=== PATIENT | male | born 1960 | race American Indian/Alaskan Native ===

== ENCOUNTER 2018-11-07 17:59 | Inpatient (IN) | payer OTHER ==
[2018-11-07] MEDS ORDERED: ASPIRIN PO ONE (18:21)
--- NOTE | 2018-11-07 18:24 | Emergency Department Report ---
Stated Complaint: ABD PAIN Time Seen by Provider: 11/07/18 18:19 - HPI History of Present Illness: This is a 58 y.o. male that presents with to ER with n/v and abdominal pain x 3 days. - ROS Review of Systems: chest pain and SOB - Exam Vital Signs: Vital Signs 11/07/18 18:20 Temperature 98.1 F Pulse Rate 87 Respiratory 18 Rate Blood Pressure 150/100 O2 Sat by Pulse 100 Oximetry MSE screening note: Focused history and physical exam performed. Due to findings the following was ordered: labs, ekg, cxr ED Disposition for MSE Condition: Stable
[2018-11-07 19:20] LABS: Basophils # (Auto) 0.1 K/mm3 (0.0-0.1); Eosinophils % (Auto) 0.2 % (0.0-4.3); Monocytes # (Auto) 0.7 K/mm3 (0.0-0.8); Monocytes % (Auto) 8.4 % (0.0-7.3)
[2018-11-07 19:56] LABS: BUN/Creatinine Ratio 9; Blood Urea Nitrogen 11 mg/dL (9-20); Calcium 9.9 mg/dL (8.4-10.2); Hemolysis Index 18
[2018-11-07 20:02] LABS: Basophils % (Auto) 1.1 % (0.0-1.8); Hematocrit 47.4 % (35.5-45.6); Hemoglobin 16.2 gm/dl (11.8-15.2); Lymphocytes # (Auto) 1.6 K/mm3 (1.2-5.4); Lymphocytes % (Auto) 19.9 % (13.4-35.0); Mean Corpuscular HGB Conc 34 % (32-34); Mean Corpuscular Volume 94 fl (84-94); Platelet Count 304 K/mm3 (140-440); Red Blood Count 5.03 M/mm3 (3.65-5.03); Red Cell Distribution Width 13.4 % (13.2-15.2)
[2018-11-07] MEDS ORDERED: ZOFRAN IV ONE (21:07)
[2018-11-07] MEDS ORDERED: DILAUDID IV ONE (21:07)
[2018-11-07] MEDS ORDERED: NACL 0.9% 500 ML 500 ML IV ONE (22:07)
[2018-11-07] MEDS ORDERED: PEPCID IV ONE (22:07)
[2018-11-07] MEDS ORDERED: K-DUR PO ONE (22:25)
--- NOTE | 2018-11-07 22:25 | Emergency Department Report ---
ED General Adult HPI - General Chief complaint: Chest Pain Stated complaint: ABD PAIN Time Seen by Provider: 11/07/18 18:19 Source: patient, RN notes reviewed Mode of arrival: Ambulatory Limitations: No Limitations - History of Present Illness Initial comments: Primary care DrTiffany: [facility] This is a pleasant 58-year-old gentleman, not known to this provider previously, history of hypertension, and recreational cannabis consumption. Patient presents to the emergency room with a complaint of abdominal pain, chest pain, back pain, nausea, vomiting and shortness of breath. Abdominal pain started first, 3 days ago, supraumbilical, crampy, "all over", increased with palpation, decreases with hydromorphone, and Zofran, given in the emergency room. Patient has never had abdominal pain like this before. Chest pain started today, left-sided, moves on the left side of the chest, but does not radiate to the back, arms and neck. He endorses shortness of breath when he is having pain. He denies DVT or pulmonary embolus risk factors. No recent aspirin consumption. No recent cardiac risk stratification. Reports distant history of pericardial effusion, evaluated at [facility]. No recent cardiac risk stratification. Denies cocaine or methamphetamine use. Also describes nontraumatic right posterior thoracic back pain, which radiates down to the right paralumbar region. This started approximately 24 hours ago. Denies extremity weakness, lateral bowel retention or incontinence, saddle anesthesia. Initially, actively vomiting, and in moderate distress, given aforementioned medications, which dramatically improved his symptomatology. -: Gradual, days(s) Location: chest, back, abdomen Radiation: non-radiation Severity scale (0 -10): 0 Quality: aching Consistency: intermittent Improves with: medication Worsens with: other - Related Data Allergies Allergy/AdvReac Type Severity Reaction Status Date / Time No Known Allergies Allergy Verified 11/07/18 18:20 ED Review of Systems ROS: Stated complaint: ABD PAIN Other details as noted in HPI Constitutional: malaise. denies: fever Eyes: denies: vision change ENT: denies: epistaxis Respiratory: shortness of breath Cardiovascular: chest pain Gastrointestinal: abdominal pain, nausea, vomiting Genitourinary: denies: dysuria Musculoskeletal: back pain Skin: denies: lesions Neurological: denies: weakness, numbness, paresthesias, confusion Psychiatric: denies: anxiety ED Past Medical Hx - Past Medical History Previous Medical History?: Yes Hx Hypertension: Yes Additional medical history: myocardial effusion. effusion drainage - Surgical History Past Surgical History?: No - Social History Smoking Status: Former Smoker Substance Use Type: Alcohol ED Physical Exam - General Limitations: No Limitations General appearance: alert, in no apparent distress - Head Head exam: Present: atraumatic, normocephalic - Eye Eye exam: Present: normal appearance, EOMI. Absent: nystagmus - ENT ENT exam: Present: normal exam, normal orophraynx, mucous membranes moist, normal external ear exam - Neck Neck exam: Present: normal inspection, full ROM. Absent: tenderness, meningismus - Respiratory Respiratory exam: Present: normal lung sounds bilaterally. Absent: respiratory distress, wheezes, rales, rhonchi, stridor - Cardiovascular Cardiovascular Exam: Present: regular rate, normal rhythm, normal heart sounds. Absent: bradycardia, systolic murmur, diastolic murmur, rubs, gallop - GI/Abdominal GI/Abdominal exam: Present: soft. Absent: distended, tenderness, guarding, rebound, rigid, pulsatile mass - Rectal Rectal exam: Present: deferred - Extremities Exam Extremities exam: Present: normal inspection, full ROM, other (2+ pulses noted i n the bilateral upper, lower extremities. Compartments soft. No long bony tenderness. The pelvis is stable.). Absent: pedal edema, joint swelling, calf tenderness - Back Exam Back exam: Present: normal inspection, full ROM. Absent: tenderness, CVA tenderness (R), paraspinal tenderness, vertebral tenderness - Neurological Exam Neurological exam: Present: alert, oriented X3, CN II-XII intact, normal gait, other (Extraocular movements intact. Tongue midline. No facial droop. Facial sensation intact to light touch in the V1, V2, V3 distribution bilaterally. 5 and 5 strength in 4 extremities.. Sensation is intact to light touch in 4 extremities.). Absent: motor sensory deficit - Psychiatric Psychiatric exam: Present: normal affect, normal mood - Skin Skin exam: Present: warm, dry, intact, normal color. Absent: rash ED Course Vital Signs 11/07/18 18:20 Temperature 98.1 F Pulse Rate 87 Respiratory 18 Rate Blood Pressure 150/100 O2 Sat by Pulse 100 Oximetry - Reevaluation(s) Reevaluation #1: 11/07/18 22:24 Differential diagnosis, including but not limited to: Acute coronary syndrome, GERD, gastritis, hiatal hernia, aortic dissection, pulmonary embolus, pancreatitis, cannabinoid hyperemesis syndrome Assessment and plan: 58-year-old gentleman with chest pain, shortness of breath, back pain, abdominal pain, nausea, vomiting. He is currently comfortable, and in no acute distress. Abdomen soft and benign, with no peritoneal signs, no pulsatile abdominal mass, and equal pulses in the upper, lower extremities. Recommended CT scan of the chest, abdomen, pelvis. Patient agreeable to this plan of care. Initial screening laboratory studies unremarkable. Initial EKG abnormal, not consistent with ST elevation myocardial infarction, with no prior for comparison. We will reassess after CT scans have resulted. Anticipate admission for cardiac risk stratification. Discussed this with the patient, who verbalized understanding, and is amenable to this plan of care. Reevaluation #2: 11/07/18 23:48 CTA CHEST, A/P NEG FOR ACUTE DISEASE NATALYA ADMIT FOR ACS RISK STRATIFICATION Reevaluation #3: 11/08/18 00:06 Dr. Zamora accepts patient to the medical service. ED Medical Decision Making - Lab Data Result diagrams: 11/07/18 18:46 11/07/18 18:46 Vital Signs 11/07/18 18:20 Temperature 98.1 F Pulse Rate 87 Respiratory 18 Rate Blood Pressure 150/100 O2 Sat by Pulse 100 Oximetry Lab Results 11/07/18 11/07/18 11/07/18 Range/Units 18:46 18:46 18:46 WBC 7.9 (4.5-11.0) K/mm3 RBC 5.03 (3.65-5.03) M/mm3 Hgb 16.2 H (11.8-15.2) gm/dl Hct 47.4 H (35.5-45.6) % MCV 94 (84-94) fl MCH 32 (28-32) pg MCHC 34 (32-34) % RDW 13.4 (13.2-15.2) % Plt Count 304 (140-440) K/mm3 Lymph % (Auto) 19.9 (13.4-35.0) % [place] % (Auto) 8.4 H (0.0-7.3) % Eos % (Auto) 0.2 (0.0-4.3) % Baso % (Auto) 1.1 (0.0-1.8) % Lymph # 1.6 (1.2-5.4) K/mm3 [place] # 0.7 (0.0-0.8) K/mm3 Eos # 0.0 (0.0-0.4) K/mm3 Baso # 0.1 (0.0-0.1) K/mm3 Seg Neutrophils % 70.4 H (40.0-70.0) % Seg Neutrophils # 5.6 (1.8-7.7) K/mm3 Sodium 141 (137-145) mmol/L Potassium 3.0 L (3.6-5.0) mmol/L Chloride 99.4 (98-107) mmol/L Carbon Dioxide 23 (22-30) mmol/L Anion Gap 21 mmol/L BUN 11 (9-20) mg/dL Creatinine 1.2 (0.8-1.5) mg/dL Estimated GFR > 60 ml/min BUN/Creatinine Ratio 9 % Glucose 131 H (75-100) mg/dL Calcium 9.9 (8.4-10.2) mg/dL Troponin T < 0.010 (0.00-0.029) ng/mL Lipase 23 (13-60) units/L 11/07/ Range/Units 21:56 WBC (4.5-11.0) K/mm3 RBC (3.65-5.03) M/mm3 Hgb (11.8-15.2) gm/dl Hct (35.5-45.6) % MCV (84-94) fl MCH (28-32) pg MCHC (32-34) % RDW (13.2-15.2) % Plt Count (140-440) K/mm3 Lymph % (Auto) (13.4-35.0) % [place] % (Auto) (0.0-7.3) % Eos % (Auto) (0.0-4.3) % Baso % (Auto) (0.0-1.8) % Lymph # (1.2-5.4) K/mm3 [place] # (0.0-0.8) K/mm3 Eos # (0.0-0.4) K/mm3 Baso # (0.0-0.1) K/mm3 Seg Neutrophils % (40.0-70.0) % Seg Neutrophils # (1.8-7.7) K/mm3 Sodium (137-145) mmol/L Potassium (3.6-5.0) mmol/L Chloride (98-107) mmol/L Carbon Dioxide (22-30) mmol/L Anion Gap mmol/L BUN (9-20) mg/dL Creatinine (0.8-1.5) mg/dL Estimated GFR ml/min BUN/Creatinine Ratio % Glucose (75-100) mg/dL Calcium (8.4-10.2) mg/dL Troponin T < 0.010 (0.00-0.029) ng/mL Lipase (13-60) units/L - EKG Data -: EKG Interpreted by Me EKG shows normal: sinus rhythm Rate: normal - EKG Data When compared to previous EKG there are: previous EKG unavailable 11/07/18 22:26 Sinus rhythm, left axis deviation, left anterior fascicular block, T-wave inversions in V4, V5 and V6, poor R-wave progression, QTC prolonged, abnormal EKG, not consistent with ST elevation myocardial infarction. - Radiology Data Radiology results: pending Critical care attestation.: If time is entered above; I have spent that time in minutes in the direct care of this critically ill patient, excluding procedure time. ED Disposition Clinical Impression: Chest pain, Abnormal EKG, Abdominal pain Disposition: OP ADMIT IP TO THIS HOSP Is pt being admited?: Yes Does the pt Need Aspirin: Yes Condition: Good Instructions: Chest Pain (ED) Referrals: SAKSHI LEVY MD [Primary Care Provider] - 3-5 Days
[2018-11-07] MEDS: KCL 10MEQ/100ML 10 MEQ/100 ML BAG IV SCH (23:28)
--- NOTE | 2018-11-07 23:38 | XRay Report ---
PROCEDURE: XR CHEST 1V AP TECHNIQUE: Chest radiograph single view. HISTORY: Chest Pain COMPARISONS: None . FINDINGS: Heart: Normal. Mediastinum/Vessels: Normal. Lungs/Pleural space: Normal. Bony thorax: No acute osseous abnormality. Life support devices: None. IMPRESSION: No acute cardiopulmonary abnormality. This document is electronically signed by Desi Keenan DO., November 07 2018 11:36:11 PM ET
--- NOTE | 2018-11-07 23:41 | Cat Scan Report ---
PROCEDURE: CT ANGIO CHEST TECHNIQUE: Computerized tomographic angiography of the chest was performed after the IV injection of iodinated nonionic contrast including image processing. The image data was postprocessed using 2-di mensional multiplanar reformatted (MPR) and 3-dimensional (MIP and/or volume rendered) techniques. Au tomated exposure control, adjustment of mA and/or kV according to patient size, or iterative reconstr uction dose optimization techniques were utilized. CT DOSE LENGTH PRODUCT: 1628.6 mGycm HISTORY: cp dyspnea COMPARISONS: None . FINDINGS: Heart and pericardium: Normal. Thoracic aorta: Normal. Pulmonary vasculature: Normal. Lymph nodes: No enlarged thoracic lymph nodes. Lungs: Mild degree centrilobular emphysematous changes are noted involving bilateral upper lobes. Th ere are no infiltrates or mass lesions.. Pleural space: No effusion, thickening, or pneumothorax. Musculoskeletal structures: No significant abnormality. Upper abdominal structures: No significant abnormality. IMPRESSION: Mild degree emphysema No acute pulmonary process. This document is electronically signed by Mathew Jon MD., November 07 2018 11:39:24 PM ET
--- NOTE | 2018-11-07 23:45 | Cat Scan Report ---
PROCEDURE: CT ABDOMEN PELVIS W CON TECHNIQUE: Computerized axial tomography of the abdomen and pelvis was performed after the IV inject ion of iodinated nonionic contrast. CT DOSE LENGTH PRODUCT: mGycm HISTORY: abd pain n/v COMPARISONS: None . FINDINGS: Liver, spleen, pancreas and bilateral adrenal glands are within normal limits. Multiple well-defined cystic lesions are noted involving bilateral kidneys largest measuring about 1.7 x 1.4 cm located in the upper portion left kidney. There is no obstructive uropathy. Urinary bladder is partially filled with normal outlines. Aorta is of normal caliber. Moderate degree of prostatomegaly is identified. Th ere is no free fluid or free air. Gallbladder is unremarkable. Small bowel loops are within normal li mits. Appendix is normal. Vertebral height is normal. IMPRESSION: Multiple cysts involving bilateral kidneys may represent adult polycystic kidney disease. This document is electronically signed by Mathew Jon MD., November 07 2018 11:43:25 PM ET
[2018-11-08] MEDS ORDERED: BABY ASPIRIN PO ONE (00:06)
--- NOTE | 2018-11-08 00:17 | History and Physical Report ---
History of Present Illness Date of examination: 11/08/18 History of present illness: 58-year-old man with a history of hypertension comes emergency room complaining of chest pain. Chest pain in the left substernal area that started yesterday, described as dull pushing sensation, constant no radiation, intensity 5/10. A dmits to nausea and vomiting, shortness of breath, diaphoresis, palpitation Review of systems Constitutional: no weight loss, chills, fever Ears, eyes, nose, mouth and throat: no nasal congestion, no nasal discharge, no sinus pressure, no vision change, no red eye. Neck: No neck pain or rigidity. Cardiovascular:+ palpitations, +chest pain Respiratory: no cough, +shortness of breath Gastrointestinal: no hematochezia, abdominal pain Genitourinary : no frequency , no hematuria Musculoskeletal: no joint swelling or muscle ache Integumentary: no rash, no pruritis Neurological: no parathesias, no focal weakness Endocrine: no cold or heat intolerance, no polyuria or polydipsia Hematologic/Lymphatic: no easy bruising, no easy bleeding, no gland swelling Allergic/Immunologic: no urticaria, no angioedema. PAST MEDICAL HISTORY:hypertension PAST SURGICAL HISTORY: None SOCIAL HISTORY: Drinks a lot , no drugs, tobacco FAMILY HISTORY: Hypertension Medications and Allergies Allergies Allergy/AdvReac Type Severity Reaction Status Date / Time No Known Allergies Allergy Verified 11/07/18 18:20 Active Meds: Active Medications Enoxaparin Sodium (Lovenox) 30 mg SUB-Q QDAY [facility] Potassium Chloride (Kcl 10meq/100ml) 10 meq in 100 mls @ 100 mls/hr IV Q1H [facility] Stop: 11/08/18 00:59 Last Admin: 11/07/18 23:28 Dose: 100 mls/hr Documented by: Exam - Physical Exam Narrative exam: General Apperance: The patient lying in bed, breathing comfortable HEENT: Normocephalic, atraumatic. Pupils equally round and reactive to light, EOMI, no sclericterus or JVD or thyromegaly or nodule. , no carotid bruit, m ucous membranes moist, no exudate or erythema Heart: S1-S2, regular is rhythm Lungs: Clear to auscultation bilaterally, breathing comfortable Abdomen: Positive bowel sounds, soft, nontender, nondistended, no organomegaly Extremities: No edema cyanosis clubbing Skin: no rash, nodule, warm and dry Neuro: cranial nerves 2-12 intact, speech is fluent, motor/sensory intact - Constitutional Vitals: Temp Pulse Resp BP Pulse Ox 98.1 F 87 18 150/100 100 11/07/18 18:20 11/07/18 18:20 11/07/18 18:20 11/07/18 18:20 11/07/18 18:20 Results - Labs CBC & Chem 7: 11/07/18 18:46 11/07/18 18:46 Labs: Abnormal lab results 11/07/18 11/07/18 Range/Units 18:46 18:46 Hgb 16.2 H (11.8-15.2) gm/dl Hct 47.4 H (35.5-45.6) % [place] % (Auto) 8.4 H (0.0-7.3) % Seg Neutrophils % 70.4 H (40.0-70.0) % Potassium 3.0 L (3.6-5.0) mmol/L Glucose 131 H (75-100) mg/dL - Imaging and Cardiology EKG: image reviewed Chest x-ray: report reviewed CT scan - abdomen: report reviewed CT scan - chest: report reviewed CT scan - pelvis: report reviewed Assessment and Plan Assessment Chest pain, rule out ACS Hypertension Plan Admit to medicine Check cardiac enzymes, stress test IV morphine, DVT prophylaxis
[2018-11-08] MEDS: KCL 10MEQ/100ML 10 MEQ/100 ML BAG IV SCH (00:50)
[2018-11-08] MEDS ORDERED: TYLENOL PO PRN (01:18)
[2018-11-08] MEDS ORDERED: SODIUM CHLORIDE FLUSH SYRINGE 10 ML IV PRN (01:18)
[2018-11-08 06:03] LABS: Basophils % (Auto) 0.3 % (0.0-1.8); Hematocrit 42.8 % (35.5-45.6); Hemoglobin 14.9 gm/dl (11.8-15.2); Lymphocytes # (Auto) 2.2 K/mm3 (1.2-5.4); Lymphocytes % (Auto) 25.2 % (13.4-35.0); Mean Corpuscular HGB Conc 35 % (32-34); Mean Corpuscular Volume 93 fl (84-94); Monocytes # (Auto) 0.7 K/mm3 (0.0-0.8); Monocytes % (Auto) 8.6 % (0.0-7.3); Platelet Count 254 K/mm3 (140-440); Red Blood Count 4.59 M/mm3 (3.65-5.03); Red Cell Distribution Width 13.3 % (13.2-15.2)
[2018-11-08 06:31] LABS: BUN/Creatinine Ratio 7; Blood Urea Nitrogen 9 mg/dL (9-20); Calcium 8.9 mg/dL (8.4-10.2); Hemolysis Index 6
[2018-11-08] MEDS ORDERED: LEXISCAN IV ONE (09:30)
[2018-11-08] MEDS: LOVENOX SUB-Q SCH (11:20)
[2018-11-08] MEDS: NORVASC PO SCH (11:20)
[2018-11-08] MEDS: SODIUM CHLORIDE FLUSH SYRINGE 10 ML IV SCH ×2 (11:21→23:50)
--- NOTE | 2018-11-08 11:45 | Treadmill Report ---
NUCLEAR STRESS TEST: PROTOCOL: The patient was brought to the stress lab in a postabsorptive state, given 10 mCi of technetium 99m at rest. The patient underwent stress imaging. The patient underwent treadmill stress test. At peak stress, the patient was given 26 mCi of technetium 99m. Shortly thereafter, the patient underwent stress imaging. Raw imaging reveals mild GI artifact. No significant motion artifact. SPECT imaging examined carefully in horizontal long axis, vertical long axis, and short axis views. There is normal homogenous uptake of radioisotope in all reported segments. No evidence of a significant fixed or reversible perfusion defect suggestive of prior infarction or ischemia. Gated wall motion reveals normal systolic thickening, calculated ejection fraction of 66%. No TID. CONCLUSIONS: 1. Normal myocardial perfusion scan without evidence of active ischemia or prior infarction. 2. Normal left ventricular systolic performance without evidence of transient ischemic dilatation or stress-induced segmental wall motion abnormalities. 3. Treadmill stress test reported separately. JOB# [id number] CONCETTA/SHIRA
[2018-11-08] MEDS ORDERED: AFLURIA QUAD 2018-2019 SYRINGE IM ONE (12:00)
[2018-11-08] MEDS: ZOFRAN IV PRN ×2 (13:19→18:08)
[2018-11-08] MEDS ORDERED: REGLAN IV STA (14:16)
[2018-11-08] MEDS: PROTONIX IV SCH (14:22)
[2018-11-08] MEDS: MORPHINE IV PRN ×2 (14:22→18:07)
--- NOTE | 2018-11-08 15:10 | Event Note ---
Date: 11/08/18 Patient is 58 yo initially presented with chest pain, had stress test done, awaiting report. I have seen and examined him. This afternoon after lunch started having abd pain, nausea , vomited 6 times. Will obtain GI eval.
--- NOTE | 2018-11-08 15:41 | Gastroenterology Consultation ---
History of Present Illness - Reason for Consult Consult date: 11/08/18 abdominal pain, N/V Requesting physician: JEEVAN ARAGON - History of Present Illness Patient is a 58 y/o male with PMH of HTN and pericardial effusion who presented to ED with c/o CP, abdominal pain, and N/V. EKG, troponins, and stress test negative. GI has been consulted for abdominal pain and N/V. This afternoon patient was resting in the bathtub of hot water in mild distress due to abd chidi n. He states the hot water is the only thing that helps alleviate his symptoms. Reports intermittent mid abdominal pain with associated N/V x ~3-4 months. Abd pain is described as a dull, non-radiating pain that last for hours after onset. Symptoms are sometime exacerbated with PO intake but not always. CP now resolved. Admits to some recent wt loss associated with current symptoms but denies fever, SOB, dizziness, signs of bleeding, or LGI symptoms such as diarrhea or constipation. Takes Ibuprofen 800mg daily at home along with occasional [employer] powder. Smokes marijuana daily. Drinks 1 can of beer daily but has no hx of liver disease. No hx of PUD or prior EGD. No abdominal surgeries. Past History Past Medical History: other (as per HPI) Past Surgical History: No surgical history Social history: other (+alcohol, +marijuana, former smoker) Family history: hypertension, other (prostate and breast cancer) Medications and Allergies Allergies Allergy/AdvReac Type Severity Reaction Status Date / Time No Known Allergies Allergy Verified 11/07/18 18:20 Home Medications Medication Instructions Recorded Confirmed Last Taken Type amLODIPine [Norvasc] 10 mg PO DAILY 11/08/18 11/08/18 11/07/18 History Active Meds: Active Medications Acetaminophen (Tylenol) 650 mg PO Q4H PRN PRN Reason: Pain MILD(1-3)/Fever >100.5/CUEVAS Amlodipine Besylate (Norvasc) 10 mg PO DAILY [facility] Last Admin: 11/08/18 11:20 Dose: 10 mg Documented by: Enoxaparin Sodium (Lovenox) 40 mg SUB-Q QDAY [facility] Last Admin: 11/08/18 11:20 Dose: 40 mg Documented by: Dextrose/Sodium Chloride (D5ns) 1,000 mls @ 100 mls/hr IV DIRECT [facility] Morphine Sulfate (Morphine) 2 mg IV Q4H PRN PRN Reason: Pain, Moderate (4-6) Last Admin: 11/08/18 14:22 Dose: 2 mg Documented by: Ondansetron HCl (Zofran) 4 mg IV Q4H PRN PRN Reason: Nausea And Vomiting Last Admin: 11/08/18 13:19 Dose: 4 mg Documented by: Pantoprazole Sodium (Protonix) 40 mg IV QDAY [facility] Last Admin: 11/08/18 14:22 Dose: 40 mg Documented by: Sodium Chloride (Sodium Chloride Flush Syringe 10 Ml) 10 ml IV BID [facility] Last Admin: 11/08/18 11:21 Dose: 10 ml Documented by: Sodium Chloride (Sodium Chloride Flush Syringe 10 Ml) 10 ml IV PRN PRN PRN Reason: LINE FLUSH medications reviewed/updated as required Review of Systems - Review of Systems All systems: negative Cardiovascular: chest pain Gastrointestinal: abdominal pain, nausea, vomiting Exam - Constitutional Vital Signs: Temp Pulse Resp BP Pulse Ox 98.8 F 78 18 148/99 100 11/08/18 12:01 11/08/18 12:01 11/08/18 12:01 11/08/18 12:01 11/08/18 12:01 General appearance: mild distress - EENT Eyes: PERRL, EOM intact ENT: hearing intact - Respiratory Respiratory: bilateral: CTA - Cardiovascular Rhythm: regular - Gastrointestinal General gastrointestinal: Present: soft, non-tender, non-distended, normal bowel sounds - Neurologic Neurological: alert and oriented x3 - Labs CBC & Chem 7: 11/08/18 04:57 11/08/18 04:57 Lab Results: Laboratory Results - last 24 hr 11/07/18 11/07/18 11/07/18 18:46 18:46 18:46 WBC 7.9 RBC 5.03 Hgb 16.2 H Hct 47.4 H MCV 94 MCH 32 MCHC 34 RDW 13.4 Plt Count 304 Lymph % (Auto) 19.9 [place] % (Auto) 8.4 H Eos % (Auto) 0.2 Baso % (Auto) 1.1 Lymph # 1.6 [place] # 0.7 Eos # 0.0 Baso # 0.1 Seg Neutrophils % 70.4 H Seg Neutrophils # 5.6 Sodium 141 Potassium 3.0 L Chloride 99.4 Carbon Dioxide 23 Anion Gap 21 BUN 11 Creatinine 1.2 Estimated GFR > 60 BUN/Creatinine Ratio 9 Glucose 131 H Lactic Acid Calcium 9.9 Troponin T < 0.010 Lipase 23 11/07/18 11/07/18 11/08/18 21:56 23:05 01:40 WBC RBC Hgb Hct MCV MCH MCHC RDW Plt Count Lymph % (Auto) [place] % (Auto) Eos % (Auto) Baso % (Auto) Lymph # [place] # Eos # Baso # Seg Neutrophils % Seg Neutrophils # Sodium Potassium Chloride Carbon Dioxide Anion Gap BUN Creatinine Estimated GFR BUN/Creatinine Ratio Glucose Lactic Acid 1.40 Calcium Troponin T < 0.010 < 0.010 Lipase 11/08/18 11/08/18 04:57 04:57 WBC 8.6 RBC 4.59 Hgb 14.9 Hct 42.8 MCV 93 MCH 32 MCHC 35 H RDW 13.3 Plt Count 254 Lymph % (Auto) 25.2 [place] % (Auto) 8.6 H Eos % (Auto) 0.0 Baso % (Auto) 0.3 Lymph # 2.2 [place] # 0.7 Eos # 0.0 Baso # 0.0 Seg Neutrophils % 65.9 Seg Neutrophils # 5.7 Sodium 139 Potassium 3.4 L Chloride 101.4 Carbon Dioxide 21 L Anion Gap 20 BUN 9 Creatinine 1.3 Estimated GFR > 60 BUN/Creatinine Ratio 7 Glucose 101 H Lactic Acid Calcium 8.9 Troponin T Lipase Assessment and Plan 1.abdominal pain 2.N/V 3.alcohol/substance dependence -afebrile -WBC and H/H WNL -plt WNL -lipase WNL -abd CT w/o acute process (kidney cysts) -patient reports intermittent mid abdominal pain with associated N/V x 3-4 months with symptoms only improved with taking a bath with hot water. No signs of bleeding. -etiology unclear- possible peptic vs GB vs cannabinoid hyperemesis syndrome vs other -will consider EGD based on progress -INR and hepatic panel in am -abd U/S -decrease diet-Keep NPO for now -continue PPI and antiemetics -continue to trend labs and supportive care -substance/alcohol cessation discussed/encouraged with patient- monitor for signs of withdrawal -will follow 4.CP -resolved -EKG, troponins, and stress test negative
[2018-11-08 19:13] LABS: Albumin 5.2 g/dL (3.9-5); Bilirubin,Direct 0.3 mg/dL (0-0.2)
[2018-11-08] MEDS: D5NS 1,000 ML IV SCH (21:06)
[2018-11-08] MEDS ORDERED: DILAUDID IV ONE (22:46)
[2018-11-09 06:00] LABS: Hematocrit 44.8 % (35.5-45.6); Hemoglobin 15.2 gm/dl (11.8-15.2); Mean Corpuscular HGB Conc 34 % (32-34); Mean Corpuscular Volume 94 fl (84-94); Platelet Count 259 K/mm3 (140-440); Red Blood Count 4.78 M/mm3 (3.65-5.03); Red Cell Distribution Width 13.4 % (13.2-15.2)
[2018-11-09 06:07] LABS: INR 0.94 (0.87-1.13)
[2018-11-09 06:16] LABS: BUN/Creatinine Ratio 17; Blood Urea Nitrogen 15 mg/dL (9-20); Calcium 9.1 mg/dL (8.4-10.2); Hemolysis Index 19
[2018-11-09 06:20] LABS: Albumin 4.1 g/dL (3.9-5); Bilirubin,Direct 0.3 mg/dL (0-0.2)
--- NOTE | 2018-11-09 10:21 | Ultrasound Report ---
ULTRASOUND ABDOMEN COMPLETE: TECHNIQUE: Transabdominal ultrasound with color Doppler interrogation. HISTORY: Abdominal pain, nausea and vomiting. COMPARISON: none. FINDINGS: LIVER: Normal. BILIARY SYSTEM: Normal. PANCREAS: Normal. SPLEEN: Normal. KIDNEYS: Both kidneys are normal size and position. There is mild increased renal echotexture consistent with medical renal disease. There are also diffuse pattern of tiny simple cysts in both kidneys. AORTA/IVC: Normal. ASCITES: None. IMPRESSION: Mild medical renal disease. Scattered tiny renal cysts. The liver and biliary system are unremarkable.
[2018-11-09] MEDS: LOVENOX SUB-Q SCH (10:27)
[2018-11-09] MEDS: PROTONIX IV SCH (10:27)
[2018-11-09] MEDS: K-DUR PO SCH ×2 (10:28→14:54)
[2018-11-09] MEDS: NORVASC PO SCH (10:29)
[2018-11-09] MEDS: SODIUM CHLORIDE FLUSH SYRINGE 10 ML IV SCH ×2 (10:35→22:43)
--- NOTE | 2018-11-09 11:45 | Gastroenterology Progress Note ---
Assessment and Plan 1.abdominal pain 2.N/V 3.alcohol/substance dependence -afebrile -WBC and H/H WNL -plt WNL -lipase WNL -LFTs trending down- T.nathaniel 1.70, AST 37, ALT 18, alk phos 71 (likely 2/2 alcohol) -abd CT w/o acute process (kidney cysts) -etiology- likely 2/2 cannabinoid hyperemesis syndrome vs peptic vs other -clinically, patient is stable and reports feeling better today with abd pain and N/v improved. Requesting to eat or drink. -No plan for EGD at this time -okay to start on clear liquids and advance as tolerated -continue PPI and and supportive care -substance/alcohol cessation discussed/encouraged with patient- monitor for signs of withdrawal -if symptoms remain improved and tolerates PO, okay to be d/c per GI standpoint on PPI with follow up in clinic in ~2-3 weeks 4.CP -resolved -EKG, troponins, and stress test negative Subjective Date of service: 11/09/18 Principal diagnosis: abdominal pain, N/V Interval history: Patient resting in bed this am w/o acute distress. Reports feeling better with abd pain improved and no N/V this am. Requesting to eat or drink. Objective - Constitutional Vitals: Temp Pulse Resp BP Pulse Ox 98.3 F 90 18 137/100 100 11/09/18 08:03 11/09/18 10:00 11/09/18 10:00 11/09/18 08:03 11/09/18 10:00 General appearance: no acute distress - Respiratory Respiratory: bilateral: CTA - Cardiovascular Rhythm: regular - Gastrointestinal General gastrointestinal: Present: soft, non-tender, non-distended, normal bowel sounds - Neurologic Neurological: alert and oriented x3 - Labs CBC & Chem 7: 11/09/18 04:48 11/09/18 04:48 Labs: Laboratory Results - last 24 hr 11/08/18 11/08/18 11/09/18 17:22 17:22 04:48 WBC RBC Hgb Hct MCV MCH MCHC RDW Plt Count PT INR Sodium Potassium Chloride Carbon Dioxide Anion Gap BUN Creatinine Estimated GFR BUN/Creatinine Ratio Glucose Calcium Total Bilirubin 2.30 H 1.70 H Direct Bilirubin 0.3 H 0.3 H Indirect Bilirubin 2.0 1.4 AST 42 H 37 ALT 21 18 Alkaline Phosphatase 95 71 Total Protein 8.6 H 7.0 Albumin 5.2 H 4.1 Albumin/Globulin Ratio 1.5 1.4 Amylase 46 Lipase 18 11/09/18 11/09/18 11/09/18 04:48 04:48 04:48 WBC 8.8 RBC 4.78 Hgb 15.2 Hct 44.8 MCV 94 MCH 32 MCHC 34 RDW 13.4 Plt Count 259 PT 13.1 INR 0.94 Sodium 141 Potassium 3.2 L Chloride 102.3 Carbon Dioxide 24 Anion Gap 18 BUN 15 Creatinine 0.9 Estimated GFR > 60 BUN/Creatinine Ratio 17 Glucose 116 H Calcium 9.1 Total Bilirubin Direct Bilirubin Indirect Bilirubin AST ALT Alkaline Phosphatase Total Protein Albumin Albumin/Globulin Ratio Amylase Lipase
[2018-11-09] MEDS: ZOFRAN IV PRN (14:48)
[2018-11-09] MEDS: D5NS 1,000 ML IV SCH ×2 (14:59→21:41)
--- NOTE | 2018-11-09 16:10 | Progress Note ---
Assessment and Plan Assessment and plan: Chest pain, atypical. Stress test negative Abd pain, nausea, vomiting Repeated vomiting GI following Poss EGD in am Hypertensive urgency Add Clonidine Alcohol abuse. Place [facility] protocol Hypoklaemia Replace and recheck in am History Interval history: Nausea vomiting multiple times Hospitalist Physical - Physical exam Narrative exam: GEN: Not in acute distress, lying in bed HEENT: Normocephalic, atraumatic, Neck: supple, No JVD heart: S1 and S2 reg, no murmurs, rubs or gallop Lungs: Clear to auscultation bilaterally, no wheeze Abd:soft, mild tender mid abdomen, epigastrum, no rebound, non distended, normal bowel sounds Ext: No edema,no clubbing, no cyanosis, Neuro:Awake,alert,oriented X 3, no focal signs, moves all ext Psych: normal mood - Constitutional Vitals: Temp Pulse Resp BP Pulse Ox 97.5 F L 79 24 170/115 100 11/09/18 12:35 11/09/18 12:35 11/09/18 12:35 11/09/18 12:35 11/09/18 12:35 Results - Labs CBC & Chem 7: 11/09/18 04:48 11/10/18 05:48 Labs: Laboratory Last Values WBC 8.8 K/mm3 (4.5-11.0) 11/09/18 04:48 RBC 4.78 M/mm3 (3.65-5.03) 11/09/18 04:48 Hgb 15.2 gm/dl (11.8-15.2) 11/09/18 04:48 Hct 44.8 % (35.5-45.6) 11/09/18 04:48 MCV 94 fl (84-94) 11/09/18 04:48 MCH 32 pg (28-32) 11/09/18 04:48 MCHC 34 % (32-34) 11/09/18 04:48 RDW 13.4 % (13.2-15.2) 11/09/18 04:48 Plt Count 259 K/mm3 (140-440) 11/09/18 04:48 Lymph % (Auto) 25.2 % (13.4-35.0) 11/08/18 04:57 [place] % (Auto) 8.6 % (0.0-7.3) H 03/27/19 04:57 Eos % (Auto) 0.0 % (0.0-4.3) 11/08/18 04:57 Baso % (Auto) 0.3 % (0.0-1.8) 11/08/18 04:57 Lymph # 2.2 K/mm3 (1.2-5.4) 11/08/18 04:57 [place] # 0.7 K/mm3 (0.0-0.8) 11/08/18 04:57 Eos # 0.0 K/mm3 (0.0-0.4) 11/08/18 04:57 Baso # 0.0 K/mm3 (0.0-0.1) 11/08/18 04:57 Seg Neutrophils % 65.9 % (40.0-70.0) 11/08/18 04:57 Seg Neutrophils # 5.7 K/mm3 (1.8-7.7) 11/08/18 04:57 PT 13.1 Sec. (12.2-14.9) 11/09/18 04:48 INR 0.94 (0.87-1.13) 11/09/18 04:48 Sodium 141 mmol/L (137-145) 11/09/18 04:48 Potassium 3.2 mmol/L (3.6-5.0) L 11/09/18 04:48 Chloride 102.3 mmol/L (98-107) 11/09/18 04:48 Carbon Dioxide 24 mmol/L (22-30) 11/09/18 04:48 Anion Gap 18 mmol/L 11/09/18 04:48 BUN 15 mg/dL (9-20) 11/09/18 04:48 Creatinine 0.9 mg/dL (0.8-1.5) 11/09/18 04:48 Estimated GFR > 60 ml/min 11/09/18 04:48 BUN/Creatinine Ratio 17 % 11/09/18 04:48 Glucose 116 mg/dL (75-100) H 11/09/18 04:48 Lactic Acid 1.40 mmol/L (0.7-2.0) 11/07/18 23:05 Calcium 9.1 mg/dL (8.4-10.2) 11/09/18 04:48 Total Bilirubin 1.70 mg/dL (0.1-1.2) H 11/09/18 04:48 Direct Bilirubin 0.3 mg/dL (0-0.2) H 11/09/18 04:48 Indirect Bilirubin 1.4 mg/dL 11/09/18 04:48 AST 37 units/L (5-40) 11/09/18 04:48 ALT 18 units/L (7-56) 11/09/18 04:48 Alkaline Phosphatase 71 units/L (35-129) 11/09/18 04:48 Troponin T < 0.010 ng/mL (0.00-0.029) 11/08/18 01:40 Total Protein 7.0 g/dL (6.3-8.2) 11/09/18 04:48 Albumin 4.1 g/dL (3.9-5) 11/09/18 04:48 Albumin/Globulin Ratio 1.4 % 11/09/18 04:48 Amylase 46 units/L (27-131) 11/08/18 17:22 Lipase 18 units/L (13-60) 11/08/18 17:22 Active Medications - Current Medications Current Medications: Generic Name Dose Route Start Last Admin Trade Name Freq PRN Reason Stop Dose Admin Acetaminophen 650 mg 11/08/18 01:18 Tylenol PO Q4H PRN Pain MILD(1-3)/Fever >100.5/CUEVAS Amlodipine Besylate 10 mg 11/08/18 10:00 11/09/18 10:29 Norvasc PO 10 mg DAILY VELASQUEZ Administration Enoxaparin Sodium 40 mg 11/08/18 10:00 11/09/18 10:27 Lovenox SUB-Q 40 mg QDAY VELASQUEZ Administration Dextrose/Sodium Chloride 1,000 mls @ 100 mls/hr 11/08/18 16:00 11/09/18 14:59 D5ns IV 100 mls/hr DIRECT VELASQUEZ Administration Morphine Sulfate 2 mg 11/08/18 01:18 11/08/18 18:07 Morphine IV 2 mg Q4H PRN Administration Pain, Moderate (4-6) Ondansetron HCl 4 mg 11/08/18 01:18 11/09/18 14:48 Zofran IV 4 mg Q4H PRN Administration Nausea And Vomiting Pantoprazole Sodium 40 mg 11/08/18 15:00 11/09/18 10:27 Protonix IV 40 mg QDAY VELSAQUEZ Administration Sodium Chloride 10 ml 11/08/18 10:00 11/09/18 10:35 Sodium Chloride Flush Syringe 10 Ml IV 10 ml BID VELASQUEZ Administration Sodium Chloride 10 ml 11/08/18 01:18 Sodium Chloride Flush Syringe 10 Ml IV PRN PRN LINE FLUSH
[2018-11-09] MEDS ORDERED: ATIVAN IV PRN ×2 (16:52)
[2018-11-09] MEDS ORDERED: APRESOLINE IV PRN (16:53)
[2018-11-09] MEDS: CATAPRES PO SCH (17:18)
[2018-11-09] MEDS: TENORMIN PO SCH (17:18)
[2018-11-10] MEDS: D5NS 1,000 ML IV SCH (05:21)
[2018-11-10] MEDS: ZOFRAN IV PRN ×2 (05:45→17:03)
[2018-11-10] MEDS: MORPHINE IV PRN (09:05)
[2018-11-10] MEDS: PROTONIX IV SCH (09:07)
[2018-11-10] MEDS ORDERED: MORPHINE IV PRN ×2 (09:38→09:44)
[2018-11-10] MEDS: SODIUM CHLORIDE FLUSH SYRINGE 10 ML IV SCH (10:00)
[2018-11-10] MEDS: CATAPRES PO SCH (12:25)
[2018-11-10] MEDS: NORVASC PO SCH (12:36)
[2018-11-10] MEDS: TENORMIN PO SCH (12:37)
[2018-11-10] MEDS ORDERED: NACL 0.9% 1000 ML 1,000 ML IV SCH (13:00)
[2018-11-10] MEDS ORDERED: VERSED ONE (14:09)
[2018-11-10] MEDS ORDERED: DIPRIVAN 10 MG/ML IV ONE (14:09)
--- NOTE | 2018-11-10 14:11 | Anesthesia Day of Surgery ---
Anesthesia Day of Surgery - Day of Surgery Patient Examined: Yes Patient H&P Reviewed: Yes Patient is NPO: Yes Beta Blockers: No
--- NOTE | 2018-11-10 14:12 | Anesthesia Consultation ---
Anesthesia Consult and Med Hx - Airway Anesthetic Teeth Evaluation: Good ROM Head & Neck: Adequate Mental/Hyoid Distance: Adequate Mallampati Class: Class II Intubation Access Assessment: Probably Good - Pulmonary Exam CTA: Yes - Cardiac Exam Cardiac Exam: No Murmur - Pre-Operative Health Status ASA Pre-Surgery Classification: ASA3 Proposed Anesthetic Plan: MAC - Pulmonary Hx Asthma: No COPD: No Hx Pneumonia: No - Cardiovascular System Hx Hypertension: Yes Hx Coronary Artery Disease: No Hx Heart Attack/AMI: No Hx Angina: No Hx Pacemaker: No Hx Internal Defibrillator: No Hx Valvular Heart Disease: No Hx Heart Murmur: No Hx Peripheral Vascular Disease: No - Endocrine Hx End Stage Renal Disease: No
[2018-11-10] MEDS ORDERED: WATER FOR IRRIG STERILE IR ONE (14:16)
--- NOTE | 2018-11-10 14:34 | Post Operative Note ---
Pre-op diagnosis: N/V/Abdominal pain Post-op diagnosis: other (Gastritis) Findings: 1. Mild gastritis (erythema) in the antrum; cold biopsy 2. Otherwise normal Procedure: EGD with cold biopsy Anesthesia: MAC Surgeon: SINGH COHEN Estimated blood loss: minimal Pathology: list (1. Gastric Antrum) Specimen disposition: to lab Condition: stable Disposition: floor (Recs: 1. Librax for probable cannabis hyperemesis. 2. Advance diet as tolerated. 3. F/U on RUQ Ultrasound.)
--- NOTE | 2018-11-10 14:58 | Operative Report ---
PROCEDURE PERFORMED: Esophagogastroduodenoscopy with cold biopsy. PREOPERATIVE DIAGNOSES: Nausea, vomiting, and abdominal pain. POSTOPERATIVE DIAGNOSES: Mild gastritis, unlikely to be the source of the nausea, vomiting and abdominal pain. ENDOSCOPIST: Kyle Menard MD INSTRUMENT: 33Across video endoscope. MEDICATIONS: MAC anesthesia by Anesthesia Services. COMPLICATIONS: No apparent complications. ESTIMATED BLOOD LOSS: Minimal. SPECIMENS: Gastric antrum, rule out gastritis. IMPLANTS: None. ASSISTANTS: None. CONDITION AT COMPLETION: Stable. TECHNIQUE: The patient was informed of the risks and benefits of the procedure. He signed the informed consent to proceed. He was placed in the left lateral decubitus position. The above sedative medications were given. His vital signs remained stable throughout the procedure. The instrument was advanced from the mouth to the second portion of the duodenum under direct visualization. At that point, the bowel was insufflated. The endoscope was then slowly withdrawn. FINDINGS: 1. Normal duodenum. 2. No evidence of gastric outlet obstruction. 3. Mild erythema in the antrum consistent with chronic gastritis, status post cold biopsy. 4. Otherwise, normal stomach. 5. Normal esophagus. RECOMMENDATIONS: 1. Librax daily therapy for probable cannabis hyperemesis syndrome. 2. Advance diet as tolerated. 3. Follow up on right upper quadrant ultrasound. 4. Continue daily Protonix given mild gastritis noted. JOB# [id number] RISSA/NTS
[2018-11-10 15:07] VITALS: BP 120/82
--- NOTE | 2018-11-10 15:48 | Discharge Summary ---
Providers - Providers Date of Admission: 11/08/18 00:14 Date of discharge: 11/10/18 Attending physician: JEEVAN ARAGON 11/08/18 15:06 Consult to Physician [CONS] Routine Comment: Consulting Provider: SINGH COHEN Physician Instructions: Reason For Exam: Nausea, vomiting, abd pain Primary care physician: [employer] Hospitalization Condition: Fair Hospital course: Patient is 58-year-old with hypertension. He presented with chest pain ,abdominal pain, nausea and vomiting. He was sen and evaluated in Ed and admitted. Stress test was done on 11/08/18 was normal. She was seen by GI physician and EGD was done on 11/10/16 revealing mild gastritis. Subsequently discharged home on omeprazole and Librax as recommended by GI. Chest pain due to gastritis. Total time spent on discharge, 31 mins Disposition: DC-01 TO HOME OR SELFCARE - Discharge Diagnoses (1) Gastritis Status: Acute (2) Hypertension Status: Acute (3) Chest pain Status: Acute Core Measure Documentation - Palliative Care Palliative Care/ Comfort Measures: Not Applicable - Core Measures Any of the following diagnoses?: none Exam - Constitutional Vitals: Temp Pulse Resp BP Pulse Ox 98.4 F 70 16 120/82 100 11/10/18 14:30 11/10/18 15:00 11/10/18 15:00 11/10/18 15:00 11/10/18 15:00 Plan Activity: no restrictions Diet: low fat, low cholesterol, low salt, other (GI soft diet) Additional Instructions: 1.Follow up with PCP or Sakshi massey in 1 week. 2.Follow up with Dr. Cohen in 1 week Follow up with: SAKSHI LEVY MD [Referring] - 3-5 Days Forms: Work/School Release Form Prescriptions: chlordiazePOXIDE/CLIDINIUM [Librax 5-2.5 mg] 1 cap PO ACHS 30 Days capsule Omeprazole 20 mg PO DAILY #30 capsule. Tramadol HCl [Ultram] 50 mg PO Q6H PRN #12 tablet PRN Reason: Pain , Severe (7-10) Ondansetron [Zofran Odt] 4 mg PO Q8HR PRN #20 tab.rapdis PRN Reason: nausea or vomiting
[2018-11-10] MEDS ORDERED: LIBRAX 5-2.5 MG PO SCH (16:30)
[2018-11-10] MEDS: LOVENOX SUB-Q SCH (18:15)
[2018-11-11] MEDS ORDERED: PROTONIX PO SCH (10:00)
== END 2018-11-10 20:56 | disposition home or self-care (01) | DRG 392 ==
LOC: ED 17:59 → 4A 11-08 00:14 → 3A 11-09 12:00
PROVIDERS: ADMIT Internal Medicine; ATTEND Internal Medicine
PROC: 0DB68ZX Excision of Stomach, Via Natural or Artificial Opening Endoscopic, Diagnostic (ICD-10-PCS; principal; 2018-11-10)
DX: K29.70 Gastritis, unspecified, without bleeding (principal); E87.6 Hypokalemia; I16.0 Hypertensive urgency; I10 Essential (primary) hypertension; Z82.49 Family history of ischemic heart disease and other diseases of the circulatory system; Z87.891 Personal history of nicotine dependence; Z80.3 Family history of malignant neoplasm of breast; Z80.42 Family history of malignant neoplasm of prostate; F10.20 Alcohol dependence, uncomplicated; F12.20 Cannabis dependence, uncomplicated; R07.89 Other chest pain
CPT/HCPCS: 36415; 71045; 71275; 74177; 76700; 78452; 80048; 80076; 82140; 82150; 83690; 83735; 84100; 84132; 84484; 85025; 85027; 85610; 87116; 88305; 88342; 90686; 93005; 93010; 93017; 96365; 96375; G0378; A9502; C9113; J1170; J1650; J2060; J2250; J2270; J2405; J2704; J2765; J2785; J3480; J7030; J7040; J7042; Q9967